=== PATIENT | female | born 1990 | race Two or more races ===

== ENCOUNTER → 2025-05-04 | Outpatient (CLI) | payer MEDICAID, SELFPAY ==
--- NOTE | 2025-05-04 16:30 | XR_ITS ---
Examination: CT brain head without contrast. 2-D sagittal coronal reconstructions Date and time of exam:May 04, 2025, 1656 hours Comparison January 19, 2023 INDICATIONS: Intractable headaches one year CTDI: vol (mGy):47.4 DLP: (mGycm):921 Technique: Multiple CT axial sections of the brain have been obtained, 5 mm slice thickness. Contrast has not been administered. 2-D sagittal, coronal reconstructions have been obtained Low dose protocols were performed. One or more of the following dose reduction techniques were used; automated exposure control, adjustment of the mA and/or KV according to patient size, use of iterative reconstruction technique. Findings: No significant ventricular enlargement. Intra-axial or extra-axial hemorrhage density is not seen. No mass effect or midline shift Basal cisterns are not remarkable. Fourth ventricle is midline. Cranial vault intact. Impression: Negative for acute hemorrhage, mass effect or midline shift Advise clinical correlation and follow-up accordingly
== END | disposition home or self-care (01) ==
LOC: CCTX 15:53
PROVIDERS: Referring Provider Nurse Practitioner Family; Visit Provider Nurse Practitioner Family
DX: G43.809 Other migraine, not intractable, without status migrainosus (principal)
CPT/HCPCS: 70450